=== PATIENT | female | born 1950 | race Caucasian/White ===

== ENCOUNTER 2019-12-26 11:17 | Inpatient (IN) | payer MEDICARE, MEDICAID ==
[2019-12-26] VITALS (12 sets, daily range): BP systolic 111–159; BP diastolic 57–103; PULSE 64–96; TEMP 97.5–98
[2019-12-26 12:35] LABS: BASO % 0.3 % (0.0-2.0); EOS # 0.2 (0.0-0.7); GRAN # 7.2 (1.4-6.5); GRAN % 68.7 % (42.2-75.2); HEMATOCRIT 41.2 % (37.0-47.0); HEMOGLOBIN 13.5 g/dl (12.5-16.0); LYMPH # 2.2 (1.2-3.4); LYMPH % 21.1 % (20.0-51.0); MEAN CELL VOLUME 92 fl (80.0-100.0); MEAN CORPUSCULAR HEMOGLOBIN 30 pg (27.0-31.0); MEAN CORPUSCULAR HGB CONC 33 g/dl (33.0-37.0); MEAN PLATELET VOLUME 8.9 fl (7.4-10.4); MONO # 0.8 (0.1-0.6); MONO % 7.2 % (1.7-9.3); PLATELET COUNT 340 K/mm3 (130-400); REDCELL DISTRIBUTION WIDTH-CV 13.3 % (11.5-14.5)
--- NOTE | 2019-12-26 12:44 | NUR ---
SEE MERGE DOCUMENTATION FOR MEDICATION ADMINISTRATION AND INTRA/POST PROCEDURE SEDATION ASSESSMENTS.
[2019-12-26 12:49] LABS: ALBUMIN 3.7 gm/dL (3.5-5.0); BILIRUBIN,TOTAL 0.8 mg/dL (0.0-1.0); CALCIUM 8.8 mg/dL (8.4-10.2); CREATININE, serum 0.45 (0.52-1.25); POTASSIUM 4.1 mmol/L (3.4-5.0); TOTAL PROTEIN 6.4 gm/dL (6.4-8.2)
[2019-12-26] MEDS ORDERED: WELLBUTRIN XL300 M1 PO (16:15)
[2019-12-26] MEDS ORDERED: NORCO 325 MG-101 TAB PO (16:16)
[2019-12-26] MEDS ORDERED: ADDERALL20 MG PO (16:17)
[2019-12-26] MEDS ORDERED: REQUIP0.25 MG PO (16:23)
--- NOTE | 2019-12-26 17:17 | NUR ---
Bleeding noted at radial site, reinflated compression band with the 10ml of air removed.
--- NOTE | 2019-12-26 19:31 | NUR ---
Pt resting in the bed post cath, only has C/O pain in her hip that is chronic, medications were given for relief with good results. Post cath VS have been stable, radial band still applied D/T earlier bleeding from site after partial deflation. All initial assessments complete.
--- NOTE | 2019-12-26 20:15 | NUR ---
Initial shift assessment done- states having pain to left hip 04/06--will give [place] when it is due tonight-- right groin site dry and intact-soft, no hematoma,,right wrist site has band on - will release the rest of the air in about an hour- no drainage noted at this time- bruising noted. Tele on- no requests at this time.
--- NOTE | 2019-12-27 00:12 | NUR ---
Last of the air was released from right radial band about an hour ago-- looks good- no drainage, soft- does have some brusing,, right groin dressing soft and intact, soft, no hematoma, no drainage- was given a [place] for hip pain about an hour ago- states is helping the pain
[2019-12-27 00:21] VITALS: BP 117/65; PULSE 85; TEMP 98.1
[2019-12-27 04:39] VITALS: BP 123/55; PULSE 64; TEMP 98.2
--- NOTE | 2019-12-27 05:27 | NUR ---
Having left hip pain that she says is chronic- taking her [place] every 4 hours as ordered- states that how she takes them at home- Right groin site dry and intact, no hematoma, soft-- right wrist remains dry- slight bruising- pt states she hopes to go home today.
[2019-12-27 07:18] VITALS: BP 125/60; PULSE 68; TEMP 98.3
[2019-12-27] MEDS ORDERED: BRILINTA90 MG PO (09:05)
[2019-12-27] MEDS ORDERED: LIPITOR20 MG PO (09:05)
[2019-12-27] MEDS ORDERED: COREG 3.123.125 MG/T PO (09:08)
[2019-12-27] MEDS ORDERED: NITROSTAT0.4 MG/TAB SL (09:08)
[2019-12-27] MEDS ORDERED: ASPIRIN E.C. 8181 MG PO (09:08)
[2019-12-27 09:10] LABS: HEMATOCRIT 41.9 % (37.0-47.0); HEMOGLOBIN 13.5 g/dl (12.5-16.0); MEAN CELL VOLUME 92 fl (80.0-100.0); MEAN CORPUSCULAR HEMOGLOBIN 30 pg (27.0-31.0); MEAN CORPUSCULAR HGB CONC 32 g/dl (33.0-37.0); MEAN PLATELET VOLUME 9.2 fl (7.4-10.4); PLATELET COUNT 316 K/mm3 (130-400); RED BLOOD COUNT 4.54 M/mm3 (4.10-5.30); REDCELL DISTRIBUTION WIDTH-CV 13.2 % (11.5-14.5)
[2019-12-27 09:28] LABS: CALCIUM 8.7 mg/dL (8.4-10.2); CHOLESTEROL RISK RATIO 3.3; CREATININE, serum 0.52 (0.52-1.25); POTASSIUM 3.6 mmol/L (3.4-5.0)
[2019-12-27 13:43] VITALS: BP 118/67; PULSE 77; TEMP 98.4
--- NOTE | 2019-12-27 15:00 | NUR ---
PATIENT GIVEN DISCHARGE INSTRUCTIONS, SCRIPTS SENT TO PHARMACY AND PHYSICIAN'S OFFICE WILL CALL PATIENT FOR F/U. ANSWERED ALL QUESTIONS/CONCERNS. DC'D LEFT FA IV, COVERED SITE WITH KIERSTEN. TELE DC'D. PATIENT CALLED AND WAITING FOR HER RIDE TO GET HERE. PATIENT PACKED ALL HER PERSONAL BELONGINGS.
--- NOTE | 2019-12-27 15:55 | NUR ---
PATIENT DISCHARGING HOME VIA AMBULATORY TO PERSONAL VEHICLE.
== END 2019-12-27 15:55 | disposition home or self-care (01) | DRG 247 ==
LOC: SURG 11:17
PROVIDERS: Nurse Practitioner Family; ADMIT Student in an Organized Health Care Education/Training Program
PROC: 027034Z Dilation of Coronary Artery, One Artery with Drug-eluting Intraluminal Device, Percutaneous Approach (ICD-10-PCS; principal; 2019-12-26)
PROC: 02703ZZ Dilation of Coronary Artery, One Artery, Percutaneous Approach (ICD-10-PCS; 2019-12-26)
PROC: 4A023N7 Measurement of Cardiac Sampling and Pressure, Left Heart, Percutaneous Approach (ICD-10-PCS; 2019-12-26)
PROC: B2111ZZ Fluoroscopy of Multiple Coronary Arteries using Low Osmolar Contrast (ICD-10-PCS; 2019-12-26)
DX: I21.4 Non-ST elevation (NSTEMI) myocardial infarction (principal); F17.213 Nicotine dependence, cigarettes, with withdrawal; F90.9 Attention-deficit hyperactivity disorder, unspecified type; G25.81 Restless legs syndrome; K21.9 Gastro-esophageal reflux disease without esophagitis; I44.0 Atrioventricular block, first degree; F32.9 Major depressive disorder, single episode, unspecified; G89.29 Other chronic pain; M54.5 Low back pain
CPT/HCPCS: 99222-AI; 99239; C1725; C1760; C1769; C1874; C1887; C1894; C9600; J1644; J1650; J2250; J3010

== ENCOUNTER 2021-05-27 09:19 | Inpatient (IN) | payer MEDICARE, MEDICAID ==
[~2021-05-27] VITALS: Ht 157.5 cm; Wt 71.1 kg
[~2021-05-27 09:19] MED LIST: ADDERALL20 MG PO; ASPIRIN E.C. 8181 MG PO; BRILINTA90 MG PO; COREG 3.123.125 MG/T PO; LIPITOR20 MG PO; NITROSTAT0.4 MG/TAB SL; NORCO 325 MG-101 TAB PO; REQUIP0.25 MG PO; WELLBUTRIN XL300 M1 PO
[2021-07-12] VITALS (11 sets, daily range): BP systolic 95–145; BP diastolic 62–79; PULSE 61–104; TEMP 97.8–98.6
[2021-07-12] MEDS ORDERED: NORCO 325 MG-7.1 TAB PO (07:39)
[2021-07-12] MEDS ORDERED: TYLENOL 500MG500 MG PO (07:40)
[2021-07-12] MEDS ORDERED: PLAVIX 75MG TAB75 MG PO (07:40)
[2021-07-12] MEDS ORDERED: REQUIP2 MG PO (07:41)
[2021-07-12] MEDS ORDERED: IRON TABLETS325 MG PO (07:42)
[2021-07-12] MEDS ORDERED: NEURONTIN300 MG/CAP PO (07:42)
[2021-07-12] MEDS ORDERED: WELLBUTRIN SR200 MG PO (07:42)
[2021-07-12] MEDS ORDERED: FOLIC ACID0.4 MG PO (07:43)
[2021-07-12] MEDS ORDERED: VITAMIN C500 MG PO (07:43)
[2021-07-12] MEDS ORDERED: COLACE 100100 MG/CAP PO (07:43)
--- NOTE | 2021-07-12 12:45 | NUR ---
PT ARRIVED TO THE FLOOR AT 1245. PT IS ALERT AND ORIENTED X4 WITH NO COMPLAINTS OF N/V BUT IS COMPLAINING OF PAIN. IT WAS EXPLAINED TO PT THAT IF SHE TAKES MEDICATION NOW, SHE WILL HAVE TO WAIT ANOTHER FOUR HOURS BEFORE ANOTHER DOSE CAN BE GIVEN. PT STATES SHE WANTED THE MEDICATION NOW. PT HAD HOME MEDICATIONS IN PURSE AND WAS INSTRUCTED TO NOT TAKE. THESE WERE TAKEN AND PUT INTO THE CLOSET IN PT ROOM. PT IS ORDERING FOOD AND HAS NO OTHER NEEDS AT THIS TIME. CALL LIGHT WITHIN REACH.
--- NOTE | 2021-07-12 19:00 | NUR ---
RECEIVED CHANGE OF SHIFT REPORT FROM DAY SHIFT NURSE.
--- NOTE | 2021-07-12 21:59 | NUR ---
OBSERVED PATIENT WITH EVEN/NONLABORED BREATHING, RESTING WITH EYES CLOSED, DID NOT WAKE WHEN STAFF STEPPED INTO ROOM, TV ON. IV FLUIDS INFUSING WITH NO PROBLEMS. SCD ON.
[2021-07-13 00:19] VITALS: BP 121/64; PULSE 89; TEMP 99.1
[2021-07-13 04:15] VITALS: BP 111/65; PULSE 82; TEMP 98.5
[2021-07-13 07:00] VITALS: BP 118/64; PULSE 82; TEMP 98.2
[2021-07-13 07:09] LABS: HEMOGLOBIN 10.8 g/dl (12.5-16.0)
[2021-07-13 07:12] LABS: HEMATOCRIT 33.5 % (37.0-47.0)
--- NOTE | 2021-07-13 07:16 | NUR ---
CHANGE OF SHIFT REPORT GIVEN TO DAY SHIFT NURSE, HUBERT FUNG AND WERO STUDENT NURSE.
--- NOTE | 2021-07-13 10:00 | NUR ---
Occlusive dressing removed on left hip with echymosis around incision, edges well approximated. No redness, drainage or swelling. Warm to touch. Aquacell applied to cover incion.
--- NOTE | 2021-07-13 10:30 | NUR ---
Shift assessment complete. IV on site, right hand, little drainage of blood, no redness or swelling. Aquacell dressing change on place on left hip with ecchymosis around the incision, edges well approximated, no drainage or swelling, warm to touch. Observed steady gait and ambulation with PT.
[2021-07-13 11:30] VITALS: BP 103/57; PULSE 83; TEMP 98.4
--- NOTE | 2021-07-13 11:59 | NUR ---
DENNYS met with the patient to discuss discharge plan. The patient lives alone in an apartment in [place]. She reports independence with ADLs and has a cane and walker. She receives meals on wheels once a day. The patient's PCP is Dr. Taylor Mims and she receives her medications from [facility] by delivery. She reports no difficulties obtaining her meds. The patient does not have a DPOA-HC and she was not interested in completing one at this time. She reports that she already has the forms at home to fill out. She reports that she is and has three children: Leon, Alfred Montelongo (ph#[phone]), and Kumar. The patient plans to return home upon discharge. DENNYS discussed home health vs outpatient PT. The patient reports that she will not be able to drive and that she utilizes transportation services through her Medicaid. She states that she would prefer home health. DENNYS provided the patient with Medicare.[employer]'s list of home health agencies that serve [place]. There are only two agencies: [facility] and [facility]. DENNYS contacted Aby at [facility] and she reports that they do not take the patient's insurance, which is Medicare [employer]. DENNYS contacted Liliane at [facility]. Liliane reports that they will have to review the referral before making a decision on whether they can take the patient or not and if they can go out to [place]. DENNYS faxed a referral to Liliane at [facility]. Awaiting screen. DENNYS updated the patient's RN. *Discharge plan: home with home health vs outpatient PT. Awaiting referral*
--- NOTE | 2021-07-13 12:43 | NUR ---
ORTHO CALLED FOR PATIENT STATUS UPDATE. 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
--- NOTE | 2021-07-13 14:05 | NUR ---
Initial visit; Patient thanked Tavern Keeper for looking in on her and offering God's blessings.
--- NOTE | 2021-07-13 15:03 | NUR ---
Liliane, at [facility], reports that they are able to accept the patient for services. DENNYS notified Liliane of possible dc today.
[2021-07-13] MEDS ORDERED: ASPI325T6 PO (15:27)
[2021-07-13] MEDS ORDERED: ROXICODONE 55 MG/TAB PO (15:28)
[2021-07-13] MEDS ORDERED: SENOKOT S 50 MG1 TAB PO (15:28)
--- NOTE | 2021-07-13 16:44 | NUR ---
The doctor is ready to discharge the patient today. DENNYS received a phone call from [facility]. The patient reached out to them and stated that she does not need services now. DENNYS met with the patient to address the above. DENNYS reviewed the benefits of home health again and how if the patient does not do home health, they would recommend outpatient PT. The patient reports that she is already getting up on her own and can do exercises on her own. The patient reports that she just wants to get home and does not want to wait on home health. DENNYS informed her how home health is already set up and good to start services with her. The patient verbalized understanding and is agreeable to home health now. DENNYS notified Liliane at [facility]. The patient then informed DENNYS that she does not have a toliet riser and that is her main concern. DENNYS contacted Kitty at the patient's preferred pharmacy, [facility]. Kitty reports that they do have a toliet riser is stock and that it is $35. She reports that they can deliver it to the patient's home. DENNYS updated the patient. The patient reports that she can not afford that at this time. DENNYS collaborated with Anabella with the [facility] emergency department. Anabella is to contact [facility] and pay for the toliet riser. [facility] will then deliver the toliet riser to the patient's home. DENNYS updated the patient. The patient expressed appreciation. The patient is in need of transport home and plans on utilizing her Medicaid transportation services. DENNYS assisted the patient with calling the Medicaid transport line. The ride was booked. Trip ID#[id number]. DENNYS updated the patient's RN. The patient is to discharge back home today, 07/13, with home health services for half-way/PT/OT from [facility]. DENNYS faxed orders to Liliane at [facility]. No additional needs at this time.
--- NOTE | 2021-07-13 17:00 | NUR ---
DISCHARGE INSTRUCTIONS GIVEN, E-SCRIPTS SENT AND DISCUSSED F/U APT. PATIENT DISCHARGING HOME WITH HOME HEALTH. COMPA RECINOS DC'Janes IV AND COVERED SITE WITH KIERSTEN. PATIENT WAITING ON RIDE.
--- NOTE | 2021-07-13 18:05 | NUR ---
PATIENT DISCHARGING HOME VIA [facility] TRANSPORT SERVICE. PATIENT IS DRESSED, PACKED AND DISCHARGE INSTRUCTIONS HAVE BEEN GIVEN. PATIENT ESCORTED OUT VIA .
== END 2021-07-13 18:05 | disposition home health service (06) | DRG 470 ==
LOC: INPTSU 07-12 06:48 → SURG 07-12 07:30
PROVIDERS: ADMIT Orthopaedic Surgery
PROC: 0SRB04Z Replacement of Left Hip Joint with Ceramic on Polyethylene Synthetic Substitute, Open Approach (ICD-10-PCS; principal; 2021-07-12 10:25)
DX: M16.12 Unilateral primary osteoarthritis, left hip (principal); F32.9 Major depressive disorder, single episode, unspecified; I51.9 Heart disease, unspecified
CPT/HCPCS: A4314; A9284; C1713; C1776; J0690; J2270; J7030; J7120